=== PATIENT | female | born 1955 | race Caucasian/White ===

== ENCOUNTER → 2024-04-02 | Outpatient (CLI) | payer MEDICARE | LOC: CPPFTMAIN 16:26 | PROVIDERS: ATTEND Internal Medicine | DX: J44.9 Chronic obstructive pulmonary disease, unspecified (principal) | CPT/HCPCS: 94060; 94726; 94729 ==

== ENCOUNTER → 2024-11-03 | Outpatient (CLI) | payer MEDICARE ==
[2024-11-03 13:25] LABS: African American GFR (CKD) >90 (>60 ml/min/1.73 sqM); Blood Urea Nitrogen 15 mg/dL (7-17); Non-African American GFR(CKD) >90 (>60 ml/min/1.73 sqM)
--- NOTE | 2024-11-03 14:15 | CT ---
EXAMINATION TYPE: CT chest w con CT DLP: 238 mGycm, Automated exposure control for dose reduction was used. DATE OF EXAM: 11/03/2024 1:52 PM COMPARISON: Chest radiograph 04/06/2024 CLINICAL INDICATION:Female, 69 years old with history of R91.8 OTHER NONSPECIFIC ABNORMAL FINDING OF LUNG F; PHH, pulmonary nodules TECHNIQUE: Multiple axial images were obtained through the chest following the administration of 100 cc of Isovue 300. . Coronal and sagittal reformats reviewed. FINDINGS: LUNGS/ PLEURA: Biapical pleural-parenchymal scarring. No pleural effusion or pneumothorax. Left uppe r lobe 2.8 x 1.8 cm lesion with spiculations and cavitation demonstrating some internal fluid. (Serie s 4, image 22). This abuts the left major fissure. Additional scattered few pulmonary nodules as exam ples including a left lower lobe 5.6 and a groundglass nodule (series 4, image 48) and a right lower lobe 2.7 mm pulmonary nodule (series 4, image 48). Minimal emphysematous changes. AIRWAY: Patent and unremarkable.. HEART: Size within normal limits. . No pericardial effusion. No significant coronary artery calcifica tions. MEDIASTINUM: No evidence of adenopathy. VASCULATURE: Mild aneurysmal dilatation of the ascending thoracic aorta measuring up to 4 cm. Conven tional three-vessel aortic arch. The aortic root measures up to 3.4 cm. The descending thoracic aorta measures up to 2.3 cm. No evidence for pulmonary embolism. MUSCULOSKELETAL: No acute osseous abnormalities. No aggressive osseous lesion. Dextrocurvature of the lower thoracic spine. SOFT TISSUES/LYMPH NODES: Unremarkable. LOWER NECK: No significant findings. UPPER ABDOMEN: No significant findings. IMPRESSION: 1. Left upper lobe 2.8 x 1.8 cm cavitary lesion. Etiologies include pulmonary abscess versus primary lung malignancy versus other etiologies. Further work up is recommended with consideration for PET/CT . 2. Additional few scattered pulmonary nodules measuring less than 6 mm. Incidentally detected nodules of this size are generally considered benign in individuals without concomitant risk factors such as smoking history or other risk factors for malignancy. Follow up imaging is generally not performed, in accordance with Fleischner Society guidelines. In high-risk patients, a [address] ax can be considered. 3. Mild aneurysmal dilatation of the ascending thoracic aorta measuring up to 4 cm. [facility], , 11/03/2024 2:12 PM
== END | disposition home or self-care (01) ==
LOC: RADCTMAIN 12:29
PROVIDERS: ATTEND Internal Medicine
DX: I71.21 Aneurysm of the ascending aorta, without rupture (principal); R91.8 Other nonspecific abnormal finding of lung field; J98.4 Other disorders of lung
CPT/HCPCS: 82565; 84520; 71260; 36415; Q9967

== ENCOUNTER → 2024-11-13 | Outpatient (CLI) | payer MEDICARE ==
--- NOTE | 2024-11-13 17:35 | PE ---
EXAMINATION TYPE: PET CT fusion skull to thigh DATE OF EXAM: 11/13/2024 CLINICAL INDICATION:Female, 69 years old with history of R91.8 abnormal imaging; TECHNIQUE: Following the intravenous administration of 10.0 mCi of F-18 FDG, whole body images are performed from the skull base to the Mid thigh. Images are reviewed on the computer in the coronal, axial, and sagittal planes. Reconstructed rotating images are created on independent workstation and reviewed on the computer. A non-contrast CT is performed in conjunction with the PET scan. Glucose level 91 mg/dL CT DLP: 360 mGycm, Automated exposure control for dose reduction was used. COMPARISON: CT 11/03/2024, PET/CT None, MRI: None FINDINGS: Mediastinal SUV mean is 2.7. Hepatic parenchyma SUV mean is 2.1. SKULL BASE AND NECK: No suspicious radiotracer activity. CHEST, MEDIASTINUM, AND HILAR REGION: Suspicious uptake identified; examples include: * Left upper lung juxta fissural 28 x 17 mm pulmonary nodule Max SUV 7.7 * Scattered nodules also present in the left lung base lower lobe measuring 6 mm Max SUV 0.38 * Superiorly in the left lung measuring up to 12 mm Max SUV 3.2. * Left perihilar uptake in lymph nodes which are poorly measured due to lack of contrast next SUV 3. 9. Few scattered subcentimeter nodules throughout the lungs which are below the sensitivity of PET/CT. ABDOMEN AND PELVIS: No suspicious radiotracer activity. MUSCULOSKELETAL STRUCTURES: No suspicious radiotracer activity. OTHER CT: Moderate emphysema changes. Colonic diverticulosis. Right lower cystic lesion adjacent to t he bowel of unknown possibly for foregut cyst. Atherosclerosis of the arterial vasculature. ascending Thoracic aorta is borderline ectasia measuring up to 39 mm. IMPRESSION: Left upper lung juxta fissural nodule highly suspicious for malignancy with at least one left lower l obe nodule and left perihilar lymph nodes concerning for metastatic disease. [facility], , 11/13/2024 5:32 PM
== END | disposition home or self-care (01) ==
LOC: RADPETMAIN 11:37
PROVIDERS: ATTEND Internal Medicine
DX: R91.8 Other nonspecific abnormal finding of lung field (principal)
CPT/HCPCS: 78815; A9552